=== PATIENT | female | born 1945 | race American Indian/Alaskan Native ===

== ENCOUNTER 2017-05-05 10:02 | Outpatient (CLI) | payer MEDICARE ==
--- NOTE | 2017-05-05 14:34 | XRay Report ---
XRAY LEFT KNEE 3 VIEWS: 05/05/17 10:02:00 CLINICAL: Pain. FINDINGS: Moderate osteopenia. No fracture or dislocation. The medial and lateral joint spaces are normal. Patellofemoral joint arthritis with small osteophytes. No joint effusion. Normal soft tissues. IMPRESSION: Patellofemoral joint osteoarthritis and moderate osteopenia.
== END 2017-05-05 10:03 | disposition home or self-care (01) ==
LOC: SPVIMAG 10:02
DX: M17.12 Unilateral primary osteoarthritis, left knee (principal); M85.862 Other specified disorders of bone density and structure, left lower leg

== ENCOUNTER 2020-01-01 08:31 | Outpatient (CLI) | payer MEDICARE ==
[2020-01-01 09:37] LABS: Blood Urea Nitrogen 14 mg/dL (7-17)
--- NOTE | 2020-01-01 15:40 | Cat Scan Report ---
CT ABDOMEN AND PELVIS WITH CONTRAST INDICATION / CLINICAL INFORMATION: BREAST CANCER WITH PAIN/COMPARE W LAST ONE/C50.811Malignant neopl. TECHNIQUE: Axial CT images were obtained through the abdomen and pelvis after IV contrast. All CT scans at this location are performed using CT dose reduction for ALARA by means of automated exposure control. COMPARISON: None available. FINDINGS: LIVER: No significant abnormality. GALLBLADDER: No significant abnormality. BILE DUCTS: No significant abnormality. PANCREAS: No significant abnormality. SPLEEN: No significant abnormality. ADRENALS: No significant abnormality. RIGHT KIDNEY and URETER: No significant abnormality. LEFT KIDNEY and URETER: No significant abnormality. STOMACH and SMALL BOWEL: No significant abnormality. Moderate size hiatal hernia is present. Lipoma o f the duodenum is present. COLON: No significant abnormality. APPENDIX: No significant abnormality. PERITONEUM: No free fluid. No free air. No fluid collection. LYMPH NODES: No significant adenopathy. AORTA and ARTERIES: No significant abnormality. IVC and VEINS: No significant abnormality. URINARY BLADDER: No significant abnormality. REPRODUCTIVE ORGANS: No significant abnormality. Previous hysterectomy ADDITIONAL FINDINGS: None. SKELETAL SYSTEM: Degenerative changes lumbar spine IMPRESSION: 1. No evidence of metastatic breast carcinoma by CT criteria 2. Lipoma duodenum 3. Moderate size hiatal hernia Signer Name: Garett Albert MD Signed: 01/01/2020 3:36 PM Workstation Name: [id number]
--- NOTE | 2020-01-01 15:41 | Cat Scan Report ---
CT CHEST WITH CONTRAST INDICATION / CLINICAL INFORMATION: BREAST CANCER WITH PAIN/COMPARE W LAST ONE/C50.811Malignant neopl. TECHNIQUE: Axial CT images were obtained through the chest after IV contrast. Sagittal and coronal reformatted i mages. All CT scans at this location are performed using CT dose reduction for ALARA by means of auto mated exposure control. COMPARISON: PET/CT dated 06/11/2015 FINDINGS: HEART: No significant abnormality. THORACIC AORTA: No significant abnormality. MEDIASTINUM and ERWIN: Enlargement and heterogeneity of the right thyroid lobe is unchanged. Normal le ft thyroid lobe. A moderate to large hiatal hernia is again seen. The tracheobronchial tree and esoph tonja are unremarkable. No mediastinal adenopathy. LUNGS: No acute air space or interstitial disease. No evidence for nodule or mass. PLEURA: No significant pleural effusion. No pneumothorax. SKELETAL SYSTEM: Mild osteopenia is suspected. No suspicious bony lesion is detected. ADDITIONAL FINDINGS: Stable bilateral mastectomy changes. IMPRESSION: No evidence for recurrent or metastatic disease in the chest. Signer Name: Jamey Manjarrez Jr, MD Signed: 01/01/2020 3:36 PM Workstation Name: [id number]
== END 2020-01-01 08:32 | disposition home or self-care (01) ==
LOC: CT 08:31
PROVIDERS: ATTEND Internal Medicine Hematology & Oncology
DX: D17.5 Benign lipomatous neoplasm of intra-abdominal organs (principal); K44.9 Diaphragmatic hernia without obstruction or gangrene; E04.9 Nontoxic goiter, unspecified; M47.816 Spondylosis without myelopathy or radiculopathy, lumbar region; C50.811 Malignant neoplasm of overlapping sites of right female breast
CPT/HCPCS: 36415; 71260; 74177; 82565; 84520; Q9967